=== PATIENT | male | born 1975 | race Caucasian/White ===

== ENCOUNTER 2017-01-19 14:41 | Emergency (ER) | payer OTHER ==
[2017-01-19] MEDS ORDERED: IOPAMIDOL 370 (76%) 100 ML VIAL IV ONE (14:42)
[2017-01-19] MEDS ORDERED: NALBUPHINE HCL 10 MG/ML AMP ONE (15:57)
[2017-01-19] MEDS ORDERED: ONDANSETRON 4 MG/2ML 2 ML VIAL ONE (15:57)
[2017-01-19 16:04] LABS: ABSOLUTE NEUTROPHIL COUNT 5.1 K/mm3 (1.8-7.7); BASO # 0.1 K/mm3 (0.0-0.2); EOS # 0.1 (0.0-0.5); EOS % 1.5 % (0.9-2.9); HEMATOCRIT 49.7 % (32.0-52.0); HEMOGLOBIN 17.4 gm/l (14.0-18.0); IMM NEUT% 0.3 % (0-1); LYMPH # 1.7 (1.0-4.8); LYMPH % 21.3 % (15-45); MEAN CELL VOLUME 89.2 fl (80.0-94.0); MEAN CORPUSCULAR HEMOGLOBIN 31.2 pg (27.0-31.0); MEAN PLATELET VOLUME 9.5 fl (7.4-10.4); MONO # 0.7 (0.0-0.8); MONO % 9.5 % (4-12); NEUT % 66.4 % (43-75); PLATELET COUNT 291 K/mm3 (130-400); RED CELL DISTRIBUTION WIDTH 11.9 % (11.5-14.5)
[2017-01-19 16:22] LABS: ALB/GLOB RATIO 1.4 (>1.0); ALBUMIN 4.2 gm/dL (3.5-5.7)
--- NOTE | 2017-01-19 16:53 | CT ---
Name: BERNARDA OBREGON Exam: CT abdomen pelvis with contrast Comparison: 09/29/2015 History: Abdominal pain. Constipation. Procedure: Helical CT using multidetector technique was applied to the abdomen and pelvis during intravenous administration of 100 cc Isovue-370. No oral contrast was given per ordering physician. An automated dose reduction technique was used to minimize patient radiation dose. Findings: CT abdomen (contrast enhanced): Lung bases are clear. Heart is nonenlarged. There is no pericardial effusion. Liver, gallbladder, pancreas, spleen, adrenal glands, kidneys, aorta, IVC, portal vein, stomach and small bowel are within normal limits. The colon is diffusely dilated with stool and a small amount of air. There is thickening and stranding around the before meals sending colon which measures up to 9 cm in diameter. There are multiple high density subcentimeter foci within the cecum from prior ingestion. Pneumatosis is not appreciated. Reactive lymph nodes are identified. There is no free air or abscess. Multilevel degenerative disease of the spine is present. CT pelvis (contrast enhanced): The bladder is normal. Proximal state is normal size and contains coarse calcifications. Seminal vesicles are symmetric. The proximal sigmoid colon is distended with stool. The mid and distal sigmoid colon are normal caliber. Obvious stricture or obstructing mass is not appreciated on this exam. There is minimal sigmoid colon diverticulosis. Retrocecal appendix is within normal limits. Small bowel is unremarkable. There is no free air, adenopathy or abscess. Trace free fluid is present. Impression: 1. Obstipation. There is diffuse increased stool within the ascending, transverse, descending and proximal sigmoid colon without obvious stricture or structural mass. Findings are consistent with patient's history of constipation. However, there is inflammatory stranding and wall thickening of the ascending colon which measures up to 9 cm in diameter. Colitis or even ischemia of the ascending colon is not excluded on this exam. 2. Trace free fluid. There is no free air or abscess. 3. Normal appendix Note: The above report was uploaded to [facility]'s electronic medical records system at 1648 hours.
== END 2017-01-19 18:17 | disposition home or self-care (01) ==
LOC: ED 14:41
DX: K59.00 Constipation, unspecified (principal); R10.9 Unspecified abdominal pain; J45.909 Unspecified asthma, uncomplicated; F17.210 Nicotine dependence, cigarettes, uncomplicated
CPT/HCPCS: 83690; 85025; 80053; 74177; 96375; 99284 ×2; 96374; J2300; J2405; Q9967

== ENCOUNTER 2017-01-20 09:03 | Inpatient (IN) | payer OTHER ==
[2017-01-20] MEDS ORDERED: LACTATED RINGERS 1,000 ML ONE (09:39)
[2017-01-20] MEDS ORDERED: ONDANSETRON 4 MG/2ML 2 ML VIAL ONE (09:39)
[2017-01-20] MEDS ORDERED: FENTANYL 100 MCG/2 ML VIAL ONE (09:39)
[2017-01-20 10:02] LABS: ABSOLUTE NEUTROPHIL COUNT 6.1 K/mm3 (1.8-7.7); BASO # 0.1 K/mm3 (0.0-0.2); BASO % 0.7 % (0.2-1.0); EOS # 0.1 (0.0-0.5); EOS % 0.6 % (0.9-2.9); HEMATOCRIT 51.7 % (32.0-52.0); HEMOGLOBIN 17.9 gm/l (14.0-18.0); IMM NEUT% 0.4 % (0-1); LYMPH # 1.5 (1.0-4.8); LYMPH % 17.5 % (15-45); MEAN CELL VOLUME 89.6 fl (80.0-94.0); MEAN CORPUSCULAR HGB CONC 34.6 g/dl (33.0-37.0); MEAN PLATELET VOLUME 9.5 fl (7.4-10.4); MONO # 0.9 (0.0-0.8); MONO % 9.9 % (4-12); NEUT % 70.9 % (43-75); PLATELET COUNT 321 K/mm3 (130-400)
[2017-01-20 10:28] LABS: ALB/GLOB RATIO 1.5 (>1.0); ALBUMIN 4.6 gm/dL (3.5-5.7); CALCIUM 9.4 mg/dL (8.6-10.3)
--- NOTE | 2017-01-20 10:33 | RAD ---
Name: BERNARDA OBREGON Exam: Acute abdominal series Comparison: CT dated 01/19/2017 Clinical history: Obstipation Findings: Single view of the chest are submitted. Heart, mediastinum and hilar structures are normal. There is no failure, infiltrate, pleural effusion or pneumothorax. 2 radiographs of the abdomen show air in stomach small bowel and colon. Air-fluid levels are noted throughout the transverse colon. This area is new within the colon when compared to prior CT. Maximum transverse dimension of the transverse colon on the current exam is 10 cm. There are a few small air-fluid levels within the distal small bowel. Distal small bowel however is not dilated. There are many subcentimeter radiopaque foreign bodies in the cecum better seen on prior CT and these are not changed. There is no free intraperitoneal air. Regional skeleton is unremarkable. Impression: 1. Diffuse dilation of the transverse colon which is now air-filled. This area is new from CT dated 01/19/2017 2. No free intraperitoneal air 3. Multiple subcentimeter radiopaque foreign bodies within the cecum unchanged from prior CT. These are of no concern. 4. No acute cardiopulmonary process 5. Please see CT dictation 01/19/2017 for further information
--- NOTE | 2017-01-20 12:10 | PCMCONS ---
General Surgery Consult: CC: abdominal pain and distension HPI: 41yo M with h/o sigmoid diverticulitis with abdominal pain and distension. This started 3-4 days ago. He has not had a BM or passed flatus since. He describes the pain as crampy and intermittent, coming in waves. He came into the ER yesterday where he was dx with constipation. He tried mag citrate and 4 fleets enemas without improvement prompting return visit to the ER. He states he has had 8-10 bouts of emesis over the past 4 days, but currently does not feel nauseated. He has a remote history of diveriticulitis, dx on CT scan in September 2015. This was treated with oral antibiotics. He has never had a colonoscopy. The patient denies any recent F/C/CP/SOB, change in bladder fx, diarrhea, or other associated symptoms. REVIEW OF SYSTEMS CONSTITUTIONAL: As per HPI. EARS, NOSE, MOUTH, THROAT: ~No sneezing or runny nose CARDIOVASCULAR: ~As per HPI. RESPIRATORY: ~As per HPI. GASTROINTESTINAL: ~As per HPI. GENITOURINARY: ~As per HPI. NEUROLOGICAL: ~No history of seizures HEMATOLOGIC: ~As per HPI. MUSCULOSKELETAL: ~No change in strength. LYMPHATICS: ~No history of splenectomy. PSYCHIATRIC: ~No change in personality or affect PMH: Diverticulitis PSH: None Meds: None All: NKDA SH: active PPD smoker, denies alcohol or EtOH FH: No FH of colorectal cancer or IBD Physical Exam: General/Constitutional: Vitals documented above, in mild discomfort due to pain. Psych: A&O x 3, normal judgment and insight. Recent and remote memory intact. Mood and affect normal. Eyes: Pupils equal, no scleral icterus Ears, Nose, Mouth, Throat: gross hearing intact Neck: Supple Heart: RRR, no LE edema Lungs: Equal rise and fall of chest wall, non-labored breathing, no audible wheezes Neuro: Gross sensation intact Abdomen: Soft, distended, tympanic, mild diffuse TTP greatest at umbilicus, no guarding. Rectal: No hemorrhoids, fissures, fistulae. Normal tone, no masses, no TTP, no stool in vault. Small amount of liquid red stool on glove upon withdrawal. Labs: CBC: 8.6/17.9/51/7/321 (71% granulocytes, bands 0.4%) Chem: Na 130, Cl 97, Cr 1.1, o/w normal LFTs: normal CT A/P (01/19/17): Findings: CT abdomen (contrast enhanced): Lung bases are clear. Heart is nonenlarged. There is no pericardial effusion. Liver, gallbladder, pancreas, spleen, adrenal glands, kidneys, aorta, IVC, portal vein, stomach and small bowel are within normal limits. The colon is diffusely dilated with stool and a small amount of air. There is thickening and stranding around the before meals sending colon which measures up to 9 cm in diameter. There are multiple high density subcentimeter foci within the cecum from prior ingestion. Pneumatosis is not appreciated. Reactive lymph nodes are identified. There is no free air or abscess. Multilevel degenerative disease of the spine is present. CT pelvis (contrast enhanced): The bladder is normal. Proximal state is normal size and contains coarse calcifications. Seminal vesicles are symmetric. The proximal sigmoid colon is distended with stool. The mid and distal sigmoid colon are normal caliber. Obvious stricture or obstructing mass is not appreciated on this exam. There is minimal sigmoid colon diverticulosis. Retrocecal appendix is within normal limits. Small bowel is unremarkable. There is no free air, adenopathy or abscess. Trace free fluid is present. Impression: 1. Obstipation. There is diffuse increased stool within the ascending, transverse, descending and proximal sigmoid colon without obvious stricture or structural mass. Findings are consistent with patient's history of constipation. However, there is inflammatory stranding and wall thickening of the ascending colon which measures up to 9 cm in diameter. Colitis or even ischemia of the ascending colon is not excluded on this exam. 2. Trace free fluid. There is no free air or abscess. 3. Normal appendix Acute abdominal series (01/20/17): Findings: Single view of the chest are submitted. Heart, mediastinum and hilar structures are normal. There is no failure, infiltrate, pleural effusion or pneumothorax. 2 radiographs of the abdomen show air in stomach small bowel and colon. Air- fluid levels are noted throughout the transverse colon. This area is new within the colon when compared to prior CT. Maximum transverse dimension of the transverse colon on the current exam is 10 cm. There are a few small air-fluid levels within the distal small bowel. Distal small bowel however is not dilated. There are many subcentimeter radiopaque foreign bodies in the cecum better seen on prior CT and these are not changed. There is no free intraperitoneal air. Regional skeleton is unremarkable. Impression: 1. Diffuse dilation of the transverse colon which is now air-filled. This area is new from CT dated 01/19/2017 2. No free intraperitoneal air 3. Multiple subcentimeter radiopaque foreign bodies within the cecum unchanged from prior CT. These are of no concern. 4. No acute cardiopulmonary process 5. Please see CT dictation 01/19/2017 for further information In the ED, the patient received a soap suds enema with the return of bloody liquid stool with some clots. A/P: 41yo M with h/o diverticulitis with obstipation, abdominal pain, and colonic dilation. Differential includes inflammatory stricture (from prior diveriticulitis), malignancy, IBD, and Ogilvies syndrome. Recommend admission, NPO/IVF, serial exams (at least q12h), and QAM AAS. Given read of dilated small bowel on todays film, will also recommend NGT to LIWS. Would avoid laxitives/ enemas given colonic dilation to 10cm and risk of perforation. Will ultimately need a colonoscopy at some point. Jewel Li MD
[2017-01-20 12:37] VITALS: BMI 28.2
[2017-01-20] MEDS ORDERED: BLISTEX LIPSTICK 1 EACH TP PRN (13:01)
[2017-01-20] MEDS ORDERED: MENTHOL/CETYLPYRD 1 EACH LOZENGE PO PRN (13:01)
[2017-01-20] MEDS ORDERED: SODIUM CHLORIDE 0.9% 100 ML IV PRN (13:01)
[2017-01-20] MEDS ORDERED: PUMP TUBING ONE (13:14)
[2017-01-20] MEDS ORDERED: ALBUTEROL NEB 2.5 MG/3 ML VIAL.NEB NEB PRN (13:15)
[2017-01-20] MEDS ORDERED: SODIUM CHLORIDE 0.9% 500 ML IV SCH (13:15)
[2017-01-20] MEDS ORDERED: HYDROMORPHONE HCL 1 MG/ML SYRINGE IV PRN (13:18)
[2017-01-20] MEDS: SODIUM CHLORIDE 0.9% 1,000 ML IV SCH ×2 (13:18→22:11)
[2017-01-20] MEDS ORDERED: SODIUM PHENOLATE MM PRN (14:01)
[2017-01-20] MEDS ORDERED: PHENOL MM PRN (14:01)
[2017-01-20] MEDS ORDERED: BOT MM PRN (14:01)
[2017-01-20] MEDS: HYDROMORPHONE HCL 0.5 MG/0.5 ML SYRINGE IV PRN ×5 (14:12→23:46)
--- NOTE | 2017-01-20 14:17 | HP ---
BERNARDA OBREGON [id number] DATE OF : 1975 DATE OF ADMISSION: 01/20/2017 IDENTIFICATION: Mr. Obregon is a 41-year-old with no local physician, [facility] is on unassigned backup call for the day of admission. CHIEF COMPLAINT: Abdominal pain. HISTORY OF PRESENT ILLNESS: Mr. Obregon was diagnosed clinically with diverticulitis last week at Urgent Care, and treated with a one week course of oral antibiotics. His diverticulitis symptoms improved, but then he has not had a bowel movement since Saturday four days ago. He tried taking milk of magnesia on , but that caused increasing abdominal cramping and did not help him have a bowel movement. He has not had any bowel movement or past any gas since Saturday. He has had increasing distention and abdominal pain as well as nausea and vomiting. He vomited several times this morning, but is only mildly nauseated currently. He was seen in the emergency department yesterday, and given magnesium citrate and Fleets enemas. Those were not helpful, and only made his pain worse. He returned today and had a soap suds enema which again made his pain worse. X-rays today, compared to a CT scan of the abdomen/pelvis done yesterday showed evolving ileus. He has been seen by Dr. Jewel Li, general surgery and referred to the Hospitalist service for admission. REVIEW OF SYSTEMS: HEENT: He does report a headache. No problems with ears, eyes, nose, or throat. Respiratory: Denies cough, or dyspnea. Cardiac: Denies chest pain, or palpitations. Gastrointestinal: As per history of present illness. Genitourinary: No dysuria, or urgency. Musculoskeletal: No current symptoms. Constitutional: No fevers, but he does have intermittent chills. PAST MEDICAL HISTORY: 1. Diverticulitis diagnosis by CT scan in the emergency department previously. He has required antibiotic treatment on 3 different occasions, including last week. He has had other episodes when he feels like it is coming on and will put himself on a liquid diet for a few days and get better. He has never had a colonoscopy. 2. Asthma. He has not used an inhaler for the last 6 years. PAST SURGICAL HISTORY: Open reduction and internal fixation of a right ankle fracture. ALLERGIES: NONE KNOWN. HOME MEDICATIONS: None. HABITS: He does smoke a half a pack of cigarettes per day. He declines nicotine replacement. He does tend to binge drink, but says that he quit drinking as of 3 weeks ago. He denies illicit drug use. SOCIAL HISTORY: He lives alone on [address], and is a yanez. FAMILY HISTORY: His father had diabetes and coronary artery disease. PHYSICAL EXAMINATION: GENERAL: This is a pleasant 41-year-old in mild discomfort. VITAL SIGNS: Temperature is 98.6 degrees Fahrenheit. Pulse is 86. Blood pressure is 154/94. Respiratory rate is 20. Oxygen saturation is 98% on room air. HEENT: Pupils equal, round, and reactive. Extraocular muscles are intact. He does have mild bilateral conjunctivitis. Oropharynx is moist. CHEST: Clear to auscultation. He does have scattered expiratory wheezes throughout. HEART: Regular, no murmur. ABDOMEN: Distended, soft but tender throughout. No guarding, or rebound. No masses appreciated. Bowel sounds are hypoactive. EXTREMITIES: Good peripheral pulses. No clubbing, cyanosis or edema. NEUROLOGIC: Alert and oriented. No focal deficits. LABORATORY DATA: CBC is entirely normal. Lactate is 0.7. Sodium is 130, potassium 4.5, chloride 97, CO2 of 24, BUN 12, creatinine 1.1, and glucose 99. Liver enzymes are normal. DIAGNOSTIC IMAGING: X-rays of the chest, abdomen, and pelvis show diffuse dilation of the transverse colon which has more air than on the CT scan done yesterday. There is no free air. ASSESSMENT: Mr. Obregon is a 41-year-old with acute ileus. This may be due to underlying diverticular stricture, or other chronic process. He has acute hyponatremia from the associated vomiting, as well as underlying asthma and nicotine dependence. PLAN: 1. Admit to med surge. 2. Nothing by mouth status and nasogastric tube decompression. 3. IV hydration with normal saline. 4. Analgesic and antiemetic medication as necessary. 5. He is not hypoxemic, but we will provide Albuterol nebulizer treatment as necessary. 6. He declined nicotine replacement. 7. Full code status. 8. Repeat labs and x-rays in the morning. 9. Venous thromboembolism risk is low and he does not require prophylaxis. He will be encouraged to ambulate as that may help the ileus as well. FELICITAS/mohsen cc: [facility]
--- NOTE | 2017-01-20 15:01 | RAD ---
Name: BERNARDA OBREGON Exam: Single view chest Comparison: 09/29/2015 Clinical history: Nasogastric tube placement Findings: Single view of the chest is submitted. Heart, mediastinum and hilar structures are within normal limits. There is no failure, infiltrate, pleural effusion or pneumothorax. Nasogastric tube tip is projected just below the GE junction and should be advanced at least 10 cm. Impression: Nasogastric tube with its tip projected just below the GE junction. Tube should be advanced approximately 10 cm. Note: Findings were discussed with Dr. Quinones at 1457 hours
[2017-01-20] MEDS: ONDANSETRON 4 MG/2ML 2 ML VIAL IV PRN (23:44)
[2017-01-21] MEDS: HYDROMORPHONE HCL 0.5 MG/0.5 ML SYRINGE IV PRN ×8 (01:51→19:38)
[2017-01-21] MEDS: ONDANSETRON 4 MG/2ML 2 ML VIAL IV PRN ×3 (01:51→17:25)
[2017-01-21] MEDS: SODIUM CHLORIDE 0.9% 1,000 ML IV SCH ×3 (06:00→22:54)
[2017-01-21 06:02] LABS: CALCIUM 8.8 mg/dL (8.6-10.3)
--- NOTE | 2017-01-21 08:19 | RAD ---
Exam: Acute abdominal series with PA chest COMPARISON: 01/20/2017, CT 01/19/2017 INDICATION: Follow-up obstruction. FINDINGS: Supine and upright views of the abdomen and a PA view of the chest were obtained. NG tube is present in the stomach. There are dilated loops of small bowel which measure up to 4.3 cm in diameter, with air-fluid on the upright view is compatible with a small bowel obstruction. This appears worse when compared with yesterday's exam. High density material remains within the cecum, presumably reflecting pills. There is no free under the diaphragm. Lungs are clear. IMPRESSION: Small bowel obstruction without perforation. No acute pulmonary process. NG tube is in the stomach.
--- NOTE | 2017-01-21 09:48 | PDOC43 ---
- Subjective Chief Complaint: Abdominal pain No change, still painful, no gas or stool passed. - Objective Vital Signs Temperature 96.9 F 01/21/17 07:33 Pulse Rate 85 01/21/17 07:33 Respiratory Rate 22 01/21/17 08:11 Blood Pressure 161/98 01/21/17 07:33 O2 Saturation by Pulse Oximetry 98 01/21/17 07:33 Oxygen Delivery Method Room Air Oxygen Flow Rate 0 Intake and Output 01/20/17 01/21/17 01/22/17 06:59 06:59 06:59 Intake Total 3286 Output Total 1425 150 Balance 1861 -150 Tubes/Drains Output: Tubes and Drains Output NG/OG Output 500 NG/OG Output 400 General: Alert, Oriented x3, Cooperative, Moderate Distress HEENT: Mucous membr. moist/pink Lungs: Clear to Auscultation Bilaterally Cardiovascular: Regular Rate and Rhythm Abdomen: Soft, Tenderness (diffuse), Hypoactive Bowel Sounds, Mild Distention, No Rebounding, No Involuntary Guarding Extremities: Normal Pulses, No Edema Skin: Normal Color Neurological: Normal Speech Psych/Mental Status: Normal Mood Laboratory 01/21/17 05:20 Current Medications: Current meds reviewed in EMR. - Problems: Assessment/Plan (1) Ileus Status: AcuteAssessment/Plan: Continue NG decompression, IV fluids, repeat x-rays in a.m. (2) Hyponatremia Status: AcuteAssessment/Plan: improved with hydration (3) Asthma Qualifiers: Asthma severity: mild intermittent Asthma complication type: uncomplicated Qualifier Code: (J45.20) Mild intermittent asthma, uncomplicated Status: ChronicAssessment/Plan: not needing treatment (4) Diverticulosis Qualifiers: Diverticulosis site: diverticulosis of large intestine Diverticulosis bleeding: diverticulosis without bleeding Qualifier Code: (K57.30) Diverticulosis of large intestine without perforation or abscess without bleeding Status: ChronicAssessment/Plan: may be source of obstruction, will need C-scope (5) Nicotine dependence Qualifiers: Nicotine product type: cigarettes Substance use status: uncomplicated Qualifier Code: (F17.210) Nicotine dependence, cigarettes, uncomplicated Status: ChronicAssessment/Plan: declined nicotine replacement, cessation counseling VTE Prophylaxis: low risk, ambulate
--- NOTE | 2017-01-21 09:49 | PDOC43 ---
- Subjective S: Pain nearly resolved, distension improved. Has belched a few times but denies flatus or BM. No nausea. No other events. O: VSS, NG with 900mL over last 18 hours, 675mL UOP Physical Exam: General/Constitutional: Vitals documented above, comfortable in NAD Psych: A&O x 3, normal judgment and insight. Recent and remote memory intact. Mood and affect normal. Eyes: Pupils equal, no scleral icterus Ears, Nose, Mouth, Throat: gross hearing intact Neck: Supple Heart: RRR, no LE edema Lungs: Equal rise and fall of chest wall, non-labored breathing, no audible wheezes Neuro: Gross sensation intact Abdomen: Soft, mild distension, NT, no guarding. Markedly improved from yesterday. AAS (01/21/17): Supine and upright views of the abdomen and a PA view of the chest were obtained. NG tube is present in the stomach. There are dilated loops of small bowel which measure up to 4.3 cm in diameter, with air-fluid on the upright view is compatible with a small bowel obstruction. This appears worse when compared with yesterday's exam. High density material remains within the cecum, presumably reflecting pills. There is no free under the diaphragm. Lungs are clear. IMPRESSION: Small bowel obstruction without perforation. No acute pulmonary process. NG tube is in the stomach. A/P: 41yo M with improving large bowel obstruction. Exam markedly improved. Plain films have evolved into more of a small bowel obstruction picture which is compatible with an incompetent ileocecal valve and appropriate NG suction. Continue current therapy. OK to start Lovenox for DVT chemo-prophylaxis. Anticipate need for sigmoidoscopy vs. colonoscopy (to determine etiology with possible biopsy) in next 1-2 days if he continues to improve. Jewel Li MD - Objective Vital Signs Temperature 96.9 F 01/21/17 07:33 Pulse Rate 85 01/21/17 07:33 Respiratory Rate 22 01/21/17 08:11 Blood Pressure 161/98 01/21/17 07:33 O2 Saturation by Pulse Oximetry 98 01/21/17 07:33 Oxygen Delivery Method Room Air Oxygen Flow Rate 0 Laboratory 01/21/17 05:20 Active Medication Orders Category Date Time Status Albuterol Sulf Neb 2.5mg/3ml [Ventolin Inhalation Med 01/20/17 13:15 Active Solution (Dose)] 2.5 mg NEB Q2H PRN Hydromorphone HCl [Dilaudid] Med 01/20/17 13:15 Active 0.5 - 1 mg IV Q2H PRN Hydromorphone HCl [Dilaudid] Med 01/20/17 13:18 Active 0.5 - 1 mg IV Q2H PRN Lip [place] [Blistex] Med 01/20/17 13:01 Active 1 each TP PRN PRN Menthol/Cetylpyridinium [Cepacol] Med 01/20/17 13:01 Active 1 each PO PRN PRN Ondansetron 4 mg/2ml Vial [Zofran] Med 01/20/17 13:15 Active 4 - 8 mg IV Q3H PRN Phenol/Sodium Phenolate [Chloraseptic] Med 01/20/17 14:01 Active 2 sprays MM Q1H PRN Sodium Chloride 0.9% 1,000 ml Med 01/20/17 13:15 Active IV 125 mls/hr Sodium Chloride 0.9% 100 ml Med 01/20/17 13:01 Active IV PRN Sodium Chloride 0.9% Flush [Normal Saline 10ml Flush] Med 01/20/17 13:01 Active 10 - 50 ml IV PRN PRN Sodium Chloride 0.9% Flush [Normal Saline 10ml Flush] Med 01/20/17 17:00 Active 10 ml IV Q8HR Intake and Output 01/19/17 01/20/17 01/21/17 22:59 23:59 23:59 Intake Total 1263 Output Total 925 Balance 338 Tubes and Drains Output NG/OG Output 500 NG/OG Output 400
[2017-01-22] MEDS: HYDROMORPHONE HCL 0.5 MG/0.5 ML SYRINGE IV PRN ×8 (04:45→21:35)
[2017-01-22] MEDS: SODIUM CHLORIDE 0.9% 1,000 ML IV SCH ×5 (04:47→23:13)
[2017-01-22 06:37] LABS: CALCIUM 8.6 mg/dL (8.6-10.3)
--- NOTE | 2017-01-22 08:13 | RAD ---
ABDOMEN 2 VIEWS W PA CHEST HISTORY: Follow-up obstruction. COMPARISONS: 01/21/2017. FINDINGS: Supine and upright views of the abdomen and a single view chest were obtained demonstrating an indwelling nasogastric tube, with tip coiled within the left upper quadrant. There are moderately dilated loops of small bowel seen throughout the abdomen with small bowel air-fluid levels consistent with a small bowel obstruction. The appearance is similar to the appearance on prior examination. There are numerous radiopaque densities identified within the right lower quadrant which may reflect ingested capsules within the right colon. No free air is visualized. The lung paris appear to be clear. IMPRESSION: 1. Moderate small bowel distention with air-fluid levels consistent with a small bowel obstruction. The appearance is similar to the appearance on prior examination. No evidence of free intraperitoneal air is observed. 2. An indwelling nasogastric tube with tip coiled within the left upper quadrant.
[2017-01-22] MEDS ORDERED: ENEMA--adult 1 EACH PR ONE (08:39)
--- NOTE | 2017-01-22 08:50 | PDOC43 ---
- Subjective S: No changes since yesterday. Minimal pain but denies passing flatus or having a BM. Ambulating. O: AFVSS, NG with 550mL dark brown/red output over last 24 hours, >1L UOP Physical Exam: General/Constitutional: Vitals documented above, comfortable in NAD Psych: A&O x 3, normal judgment and insight. Recent and remote memory intact. Mood and affect normal. Eyes: Pupils equal, no scleral icterus Ears, Nose, Mouth, Throat: gross hearing intact Neck: Supple Heart: RRR, no LE edema Lungs: Equal rise and fall of chest wall, non-labored breathing, no audible wheezes Neuro: Gross sensation intact Abdomen: Soft, moderate distension, NT, no guarding. AAS (01/22/17): FINDINGS: Supine and upright views of the abdomen and a single view chest were obtained demonstrating an indwelling nasogastric tube, with tip coiled within the left upper quadrant. There are moderately dilated loops of small bowel seen throughout the abdomen with small bowel air-fluid levels consistent with a small bowel obstruction. The appearance is similar to the appearance on prior examination. There are numerous radiopaque densities identified within the right lower quadrant which may reflect ingested capsules within the right colon. No free air is visualized. The lung paris appear to be clear. IMPRESSION: 1. Moderate small bowel distention with air-fluid levels consistent with a small bowel obstruction. The appearance is similar to the appearance on prior examination. No evidence of free intraperitoneal air is observed. 2. An indwelling nasogastric tube with tip coiled within the left upper quadrant. A/P: 41yo M with likely large bowel obstruction of unknown etiology without resolution despite non-operative measures over the last 48 hours, to include correction of hyponatremia. I have asked my partner, Dr. Jacome to further assess with colonoscopy, which he will perform later this afternoon. If a lesion is found (diverticular stricture or other), he will likely need an operative resection. Jewel Li MD - Objective Vital Signs Temperature 97.9 F 01/22/17 07:01 Pulse Rate 72 01/22/17 07:01 Respiratory Rate 18 01/22/17 07:01 Blood Pressure 139/88 01/22/17 07:01 O2 Saturation by Pulse Oximetry 97 01/22/17 07:01 Oxygen Delivery Method Room Air Oxygen Flow Rate 0 Laboratory 01/22/17 05:30 Active Medication Orders Category Date Time Status Albuterol Sulf Neb 2.5mg/3ml [Ventolin Inhalation Med 01/20/17 13:15 Active Solution (Dose)] 2.5 mg NEB Q2H PRN Hydromorphone HCl [Dilaudid] Med 01/20/17 13:15 Active 0.5 - 1 mg IV Q2H PRN Hydromorphone HCl [Dilaudid] Med 01/20/17 13:18 Active 0.5 - 1 mg IV Q2H PRN Lip [place] [Blistex] Med 01/20/17 13:01 Active 1 each TP PRN PRN Menthol/Cetylpyridinium [Cepacol] Med 01/20/17 13:01 Active 1 each PO PRN PRN Ondansetron 4 mg/2ml Vial [Zofran] Med 01/20/17 13:15 Active 4 - 8 mg IV Q3H PRN Phenol/Sodium Phenolate [Chloraseptic] Med 01/20/17 14:01 Active 2 sprays MM Q1H PRN Sodium Chloride 0.9% 1,000 ml Med 01/20/17 13:15 Active IV 125 mls/hr Sodium Chloride 0.9% 100 ml Med 01/20/17 13:01 Active IV PRN Sodium Chloride 0.9% Flush [Normal Saline 10ml Flush] Med 01/20/17 13:01 Active 10 - 50 ml IV PRN PRN Sodium Chloride 0.9% Flush [Normal Saline 10ml Flush] Med 01/20/17 17:00 Active 10 ml IV Q8HR Intake and Output 01/20/17 01/21/17 01/22/17 23:59 23:59 23:59 Intake Total 3421 1326 Output Total 1575 950 Balance 1846 376 Tubes and Drains Output NG/OG Output 550
--- NOTE | 2017-01-22 13:32 | PDOC43 ---
- Subjective Chief Complaint: Abdominal pain pain continues, passed a little stool with fleets enema - Objective Vital Signs Temperature 98.1 F 01/22/17 13:14 Pulse Rate 63 01/22/17 13:14 Respiratory Rate 16 01/22/17 13:14 Blood Pressure 137/89 01/22/17 13:14 O2 Saturation by Pulse Oximetry 98 01/22/17 13:14 Oxygen Delivery Method Room Air Oxygen Flow Rate 0 Intake and Output 01/21/17 01/22/17 01/23/17 06:59 06:59 06:59 Intake Total 3286 3484 Output Total 1425 1750 525 Balance 1861 1734 -525 Tubes/Drains Output: Tubes and Drains Output NG/OG Output 550 General: Alert, Oriented x3, Cooperative, No Acute Distress Lungs: Other (exp wheezes) Cardiovascular: Regular Rate and Rhythm Abdomen: Soft, Tenderness, Hypoactive Bowel Sounds, Distention, No Masses Extremities: Normal Pulses, No Edema Skin: Normal Color Neurological: Normal Speech Psych/Mental Status: Normal Mood Laboratory 01/22/17 05:30 Current Medications: Current meds reviewed in EMR. - Problems: Assessment/Plan (1) Ileus Status: AcuteAssessment/Plan: Continue NG decompression, IV fluids, C-scope today by Dr. Jacome (2) Hyponatremia Status: AcuteAssessment/Plan: resolved with hydration (3) Asthma Qualifiers: Asthma severity: mild intermittent Asthma complication type: uncomplicated Qualifier Code: (J45.20) Mild intermittent asthma, uncomplicated Status: ChronicAssessment/Plan: not needing treatment (4) Diverticulosis Qualifiers: Diverticulosis site: diverticulosis of large intestine Diverticulosis bleeding: diverticulosis without bleeding Qualifier Code: (K57.30) Diverticulosis of large intestine without perforation or abscess without bleeding Status: ChronicAssessment/Plan: may be source of obstruction (5) Nicotine dependence Qualifiers: Nicotine product type: cigarettes Substance use status: uncomplicated Qualifier Code: (F17.210) Nicotine dependence, cigarettes, uncomplicated Status: ChronicAssessment/Plan: declined nicotine replacement, cessation counseling VTE Prophylaxis: low risk, ambulate
[2017-01-22] MEDS ORDERED: PROPOFOL 20 ML IV ONE ×2 (16:17→16:37)
[2017-01-23] MEDS: HYDROMORPHONE HCL 0.5 MG/0.5 ML SYRINGE IV PRN ×5 (00:17→09:28)
[2017-01-23 06:05] LABS: HEMATOCRIT 46.2 % (32.0-52.0); HEMOGLOBIN 15.7 gm/l (14.0-18.0); MEAN CELL VOLUME 91.3 fl (80.0-94.0); RED CELL DISTRIBUTION WIDTH 11.9 % (11.5-14.5)
[2017-01-23 06:22] LABS: ALB/GLOB RATIO 1.3 (>1.0); ALBUMIN 3.7 gm/dL (3.5-5.7); CALCIUM 8.8 mg/dL (8.6-10.3)
[2017-01-23] MEDS: ONDANSETRON 4 MG/2ML 2 ML VIAL IV PRN ×2 (07:46→09:28)
[2017-01-23] MEDS ORDERED: CEFAZOLIN SODIUM 2 GRAM PREMIX 2 G in Premix (D5W) 100 ml 1 EACH IV PRN (09:39)
[2017-01-23] MEDS ORDERED: METRONIDAZOLE 500 MG/NS 100 ML 500 MG in Premix (NS) 100 ml 1 EACH IV PRN (09:39)
[2017-01-23] MEDS: SODIUM CHLORIDE 0.9% 1,000 ML IV SCH ×2 (10:09→22:22)
[2017-01-23] MEDS ORDERED: LACTATED RINGERS 1,000 ML ONE (10:09)
--- NOTE | 2017-01-23 10:33 | PDOC43 ---
- Subjective S: Colonoscopy yesterday by Dr. Jacome found a near vs. completely obstructed sigmoid colon. Minimal pain, still no flatus or BM yet. No other complaints O: AFVSS, approx. 1L UOP, 700mL NG output (brown/dark red) Physical Exam: General/Constitutional: Vitals documented above, comfortable in NAD Psych: A&O x 3, normal judgment and insight. Recent and remote memory intact. Mood and affect normal. Eyes: Pupils equal, no scleral icterus Ears, Nose, Mouth, Throat: gross hearing intact Neck: Supple Heart: RRR, no LE edema Lungs: Equal rise and fall of chest wall, non-labored breathing, no audible wheezes Neuro: Gross sensation intact Abdomen: Soft, distended, nontender, no guarding. A/P: 41yo M with near to completely obstructing lesion in sigmoid colon ( diverticulitis vs. malignancy). I recommend open sigmoidectomy. The operation and expected post-operative course were discussed at length. We discussed the risks of the operation to include, but not limited to: bleeding, pain, infection, scar, damage to surrounding structures (small bowel, colon, bladder, ureter), failure to improve health, need for additional procedures (to include temporary or permanent ileostomy or colostomy), anastomotic leak, need for blood transfusion, postoperative ventral hernia, and the risks of anesthesia (heart attack, arrhythmia, stroke, blood clot, and ). The patient understands these risks and agrees to proceed with surgery. Will cross match for 2 units PRBCs, Ancef/Flagyl for lizet-operative Abx. Jewel Li MD General Surgeon - Objective Vital Signs Temperature 98.2 F 01/23/17 07:38 Pulse Rate 83 01/23/17 07:38 Respiratory Rate 18 01/23/17 07:38 Blood Pressure 159/109 01/23/17 07:38 O2 Saturation by Pulse Oximetry 97 01/23/17 07:38 Oxygen Delivery Method Room Air Oxygen Flow Rate 0 Laboratory 01/23/17 05:30 01/23/17 05:30 01/23/17 05:30 Anion Gap 18 H ALT 6 L Active Medication Orders Category Date Time Status Albuterol Sulf Neb 2.5mg/3ml [Ventolin Inhalation Med 01/20/17 13:15 Active Solution (Dose)] 2.5 mg NEB Q2H PRN Cefazolin Sodium 2 Gram Premix [Ancef 2 Gram Premix] 2 Med 01/23/17 09:39 Ordered g Premix (D5W) 100 ml 1 each IV ON HOLD TO OR Ertapenem Sodium [Invanz] 1 g Med 01/23/17 11:00 Active Ns 0.9% (Mini-Bag Plus) [Mini-Bag Plus (Ns)] 50 ml IV ON HOLD TO OR Hydromorphone HCl [Dilaudid] Med 01/20/17 13:15 Active 0.5 - 1 mg IV Q2H PRN Hydromorphone HCl [Dilaudid] Med 01/20/17 13:18 Active 0.5 - 1 mg IV Q2H PRN Lip [place] [Blistex] Med 01/20/17 13:01 Active 1 each TP PRN PRN Menthol/Cetylpyridinium [Cepacol] Med 01/20/17 13:01 Active 1 each PO PRN PRN Metronidazole 500 mg/Ns 100 ml [Flagyl 500 mg IV] 500 Med 01/23/17 09:39 Ordered mg Premix (NS) 100 ml 1 each IV ON HOLD TO OR Ondansetron 4 mg/2ml Vial [Zofran] Med 01/20/17 13:15 Active 4 - 8 mg IV Q3H PRN Phenol/Sodium Phenolate [Chloraseptic] Med 01/20/17 14:01 Active 2 sprays MM Q1H PRN Sodium Chloride 0.9% 1,000 ml Med 01/20/17 13:15 Active IV 125 mls/hr Sodium Chloride 0.9% 100 ml Med 01/20/17 13:01 Active IV PRN Sodium Chloride 0.9% Flush [Normal Saline 10ml Flush] Med 01/20/17 13:01 Active 10 - 50 ml IV PRN PRN Sodium Chloride 0.9% Flush [Normal Saline 10ml Flush] Med 01/20/17 17:00 Active 10 ml IV Q8HR Intake and Output 01/21/17 01/22/17 01/23/17 23:59 23:59 23:59 Intake Total 3421 3386 2630 Output Total 1575 1655 1175 Balance 1846 1731 1455 Tubes and Drains Output NG/OG Output 200 NG/OG Output 180
[2017-01-23] MEDS ORDERED: ERTAPENEM SODIUM 1 G in NS 0.9% (MINI-BAG PLUS) 50 ML IV PRN (11:00)
[2017-01-23] MEDS ORDERED: FENTANYL 250 MCG/5 ML AMP ONE (11:21)
[2017-01-23] MEDS ORDERED: MIDAZOLAM HCL 5 MG/5 ML VIAL ONE (11:21)
[2017-01-23] MEDS ORDERED: EPIDURAL PROCEDURE TRAY ONE (11:22)
[2017-01-23] MEDS ORDERED: PROPOFOL 20 ML IV ONE ×5 (12:02→17:14)
[2017-01-23] MEDS ORDERED: SUCCINYLCHOLINE CHL 20 MG/ML DOSE ONE (12:02)
[2017-01-23] MEDS ORDERED: ROCURONIUM BROMIDE 10 MG/ML DOSE IV ONE ×2 (12:02→15:18)
[2017-01-23] MEDS ORDERED: DEXAMETHASONE SOD PHOS 4 MG/1 ML VIAL ONE (12:02)
[2017-01-23] MEDS ORDERED: LIDOCAINE 2% (PRES FREE) 5 ML VIAL ONE (12:02)
[2017-01-23] MEDS ORDERED: METOCLOPRAMIDE HCL 5 MG/ML 2ML VIAL ONE (12:02)
[2017-01-23] MEDS ORDERED: ROPIVACAINE 0.5% 30 ML VIAL ONE (13:11)
[2017-01-23] MEDS ORDERED: PHENYLEPHRINE 10 MG/1 ML (1%) VIAL ONE (13:11)
[2017-01-23] MEDS ORDERED: ESMOLOL HCL 10 MG/ML 10ML VIAL IV ONE (13:11)
[2017-01-23 13:15] LABS: ALB/GLOB RATIO 1.3 (>1.0); ALBUMIN 3.5 gm/dL (3.5-5.7); CALCIUM 8.5 mg/dL (8.6-10.3)
[2017-01-23] MEDS ORDERED: HETASTARCH 6% IV ONE (13:17)
[2017-01-23] MEDS ORDERED: NS IV ONE (13:17)
[2017-01-23] MEDS ORDERED: EPHEDRINE SULFATE 50 MG/ML 1ML VIAL IV PRN (14:15)
[2017-01-23] MEDS ORDERED: NALOXONE HCL 0.4 MG/ML VIAL IV PRN ×2 (14:15→14:22)
[2017-01-23] MEDS ORDERED: PROMETHAZINE HCL 25 MG/ML VIAL IM PRN (14:22)
[2017-01-23] MEDS ORDERED: ATROPINE SULFATE 0.4 MG/1 ML VIAL IV PRN (14:22)
[2017-01-23] MEDS ORDERED: HYDROMORPHONE HCL 1 MG/ML SYRINGE IV PRN (14:22)
[2017-01-23] MEDS ORDERED: ONDANSETRON 4 MG/2ML 2 ML VIAL IV PRN (14:22)
[2017-01-23] MEDS ORDERED: FENTANYL 100 MCG/2 ML VIAL IV PRN (14:22)
[2017-01-23] MEDS ORDERED: LACTATED RINGERS 1,000 ML IV SCH (14:30)
[2017-01-23] MEDS ORDERED: KETAMINE HCL UD SYRINGE 100 MG/2 ML IV ONE (14:38)
[2017-01-23] MEDS ORDERED: PROPOFOL 40 ML IV ONE (14:38)
[2017-01-23] MEDS ORDERED: EPIDURAL PUMP SET ONE (14:50)
[2017-01-23] MEDS ORDERED: FENTANYL/ROPIVACAINE EPIDURAL 250 ML EP ONE (14:50)
[2017-01-23] MEDS ORDERED: FENTANYL 100 MCG/2 ML VIAL ONE (16:34)
[2017-01-23] MEDS ORDERED: NEOSTIGMINE METHYLSULFATE 1 MG/ML DOSE ONE (17:29)
[2017-01-23] MEDS ORDERED: GLYCOPYRROLATE 0.2 MG/ML 1ML VIAL ONE (17:29)
[2017-01-23] MEDS ORDERED: MEPERIDINE 25 MG/ML SYRINGE ONE (18:26)
[2017-01-23] MEDS ORDERED: MEPERIDINE 25 MG/ML SYRINGE IV ONE (18:38)
--- NOTE | 2017-01-23 19:04 | PCMON ---
OPERATIVE REPORT Date of Operation: 23 January 2017 Pre-Op Diagnosis: Large bowel obstruction Post-Op Diagnosis: Large bowel obstruction Operation: Open sigmoidectomy with loop ileostomy Surgeon: Jewel Li MD Co-Surgeon: Scott Jacome MD Sow Manager: Mayra Reilly Anesthesia: General Pre-Operative Antibiotics: Ancef/Flagyl Specimen Sent to Lab: Sigmoid colon, anastomotic donuts Infection Classification: 3 Estimated Blood Loss: 200mL IVF: 7L LR, 500mL hetastarch UOP: 360mL NGT: 1L Indication for Procedure: The patient is a 41 year old man with a known history of diverticulitis. He presented 4 days ago with a large bowel obstruction. Sigmoidoscopy showed a near complete vs. complete obstruction in his sigmoid colon. The plan for today is sigmoidectomy. Description of Findings: The sigmoid colon had significant scar tissue consistent with the patients known history of diverticulitis. There was a moderate spillage of stool that was thoroughly irrigated and suctioned. A diverting loop ileostomy was created. Detailed Operative Report: The patient was met in the pre-operative holding area by the operating team. All questions and concerns were addressed appropriately. A thoracic epidural was placed by the anesthesia service. The patient was taken to the operating room general anesthesia was induced. A Daley catheter was placed. A vertical midline incision was made. The peritoneum was opened sharply demonstrating multiple dilated loops of small bowel. The small bowel was evisverated, wrapped in a moist towel, and an omni retractor was placed to facilitate exposure. The sigmoid colon was redundant with significant scar tissue to the rectum and the anterior abdominal wall. Meticulous dissection was performed to dissect this scar tissue and mobilize the colon. The remainder of the sigmoid and descending colon was mobilized in a lateral to medial fashion along the white line of Toldt using blunt dissection and electrocautery. The left ureter was identified and preserved. The patients stenosis was identified and was approximately 5-10cm superior to the recto-sigmoid junction. The distal colon was divided at the recto-sigmoid junction with a GREG linear cutting stapler using a 75mm blue load. The proximal colon was assessed and appeared to be healthy and non-thickened approximately 30cm proximal. This was similarly divided. The mesocolon was divided with the ligasure device. The specimen was passed off to the back table and opened demonstrating a complete obstruction but no clear mass or malignancy. Both remaining ends of bowel reached without any evidence of tension. The decision was made to perform a primary anastomosis with an EEA stapler. We selected a 33mm Ethicon EEA stapler. The proximal staple line was removed sharply from the proximal colon and a purse-string device was fired. During the removal of the staple line, the colon was filled with liquid stool with a moderate amount of spillage. Care was taken to minimize this spillage and suction was passed into the proximal bowel for several minutes to prevent further spillage. The anvil was placed into the proximal colon and the purse string was tied. A series of enlarging sizers were passed, followed by the stapler. The pin exited adjacent to the staple line, the anvil was joined, and the stapler was fired. The proximal colon was occluded and Dr. Jacome performed a sigmoidoscopy with a colonoscope. There was a large air leak and the decision was made to re-do the anastomosis. The anastomosis was sharply divided, the rectum was stapled with a countour stapler, and the proximal colon was debrided back to healthy non-stapled tissue. A hand-sewn purse string suture was placed with a 2-0 prolene. Similar steps were taken and the EEA was fired. There were two small air leaks at the medial and lateral aspects of the anastomosis that were repaired with 3-0 silk lambert sutures. Another leak test was performed that was negative. At this time, the small bowel was inspected and there was a large serosal tear in the proximal ileum that was repaired with 3-0 silk lambert sutures. Given the spillage of stool and a positive but repaired leak test, we elected to perform a diverting loop ileostomy. A loop of ileum 20cm from the cecum was selected as the site for the ileostomy. A circular incision was made removing skin and subcutaneous tissue all the way down to the fascia in a right para- umbilical position. A cruciate fascial incision was made on the anterior rectus fascia and the peritoneum was incised. The ileum was delivered through the defect in a rectus-splitting fashion. This was held into place with a stoma bar. Sepra-film was placed on the peritoneal side of the ileostomy. The abdomen was thoroughly irrigated with several liters of warm saline. Hemostasis was ensured. There was no feculent material noted. The fascia was closed with running looped 0-PDS. The subcutaneous skin was thoroughly irrigated with another liter of warm saline. The skin was loosely closed with skin dandre. Xeroform was placed over the closed incision and an incisional wound vac was placed with a good seal. The stoma was then matured. An enterotomy was created and a large amount of feculent small bowel contents was suctioned. A diverting Analia loope ileostomy was created with interrupted 3-0 Vicryl sutures. A stoma appliance was placed. The patient was then awakened from anesthesia, extubated, and transferred to the PACU without complication. Prior to closing, all sponge and instrument counts were correct. JEWEL LI MD
[2017-01-23] MEDS: FENTANYL/ROPIVACAINE EPIDURAL 250 ML EP SCH (19:26)
[2017-01-23] MEDS ORDERED: EtCO2 Monitoring Set ONE (19:38)
[2017-01-23 19:49] LABS: HEMATOCRIT 47.1 % (32.0-52.0); HEMOGLOBIN 15.8 gm/l (14.0-18.0); MEAN CELL VOLUME 91.3 fl (80.0-94.0); MEAN CORPUSCULAR HEMOGLOBIN 30.6 pg (27.0-31.0); MEAN CORPUSCULAR HGB CONC 33.5 g/dl (33.0-37.0); RED CELL DISTRIBUTION WIDTH 11.7 % (11.5-14.5)
[2017-01-23 19:51] LABS: CALCIUM 7.9 mg/dL (8.6-10.3)
[2017-01-23] MEDS ORDERED: SODIUM CHLORIDE IRRIG 1,000 ML BOT IR PRN (20:16)
[2017-01-23] MEDS ORDERED: PUMP TUBING ONE (20:17)
[2017-01-23] MEDS: LACTATED RINGERS 1,000 ML IV SCH (20:20)
[2017-01-23] MEDS: CEFAZOLIN SODIUM 2 GRAM PREMIX 2 G in Premix (D5W) 100 ml 1 EACH IV SCH (20:40)
[2017-01-23] MEDS: METRONIDAZOLE 500 MG/NS 100 ML 500 MG in Premix (NS) 100 ml 1 EACH IV SCH (21:15)
[2017-01-24] MEDS ORDERED: LACTATED RINGERS 1,000 ML IV SCH ×2 (02:15→06:30)
[2017-01-24] MEDS ORDERED: LACTATED RINGERS 500 ML IV ONE ×3 (02:30→13:15)
[2017-01-24] MEDS: CEFAZOLIN SODIUM 2 GRAM PREMIX 2 G in Premix (D5W) 100 ml 1 EACH IV SCH ×2 (04:42→12:04)
[2017-01-24] MEDS: HYDROMORPHONE HCL 0.5 MG/0.5 ML SYRINGE IV PRN ×7 (04:42→18:10)
[2017-01-24] MEDS: FENTANYL/ROPIVACAINE EPIDURAL 250 ML EP SCH ×3 (05:21→16:55)
[2017-01-24] MEDS: METRONIDAZOLE 500 MG/NS 100 ML 500 MG in Premix (NS) 100 ml 1 EACH IV SCH (05:23)
[2017-01-24 05:54] LABS: HEMATOCRIT 44.2 % (32.0-52.0); HEMOGLOBIN 15.3 gm/l (14.0-18.0); MEAN CELL VOLUME 89.7 fl (80.0-94.0); MEAN CORPUSCULAR HGB CONC 34.6 g/dl (33.0-37.0); RED CELL DISTRIBUTION WIDTH 11.9 % (11.5-14.5)
[2017-01-24 06:19] LABS: CALCIUM 7.7 mg/dL (8.6-10.3); MAGNESIUM 1.5 mg/dL (1.9-2.7)
[2017-01-24] MEDS: LACTATED RINGERS 1,000 ML IV SCH ×2 (06:40→17:40)
[2017-01-24] MEDS ORDERED: SODIUM CHLORIDE 0.9% 100 ML IV ONE (13:29)
[2017-01-24] MEDS ORDERED: PUMP TUBING ONE (13:29)
[2017-01-24] MEDS: ENOXAPARIN SODIUM 40 MG/0.4 ML SYRINGE SUB-Q SCH (13:40)
[2017-01-24] MEDS: ERTAPENEM SODIUM 1 G in NS 0.9% (MINI-BAG PLUS) 50 ML IV SCH (13:41)
[2017-01-24] MEDS ORDERED: MAGNESIUM SULFATE 2 G/50 ML 2 G in Premix (Water) 50 ml 1 EACH IV ONE (14:00)
[2017-01-24] MEDS ORDERED: HYDROMORPHONE HCL 1 MG/ML SYRINGE IV ONE (19:30)
[2017-01-24] MEDS ORDERED: PCA ADMINISTRATION KIT ONE (19:44)
[2017-01-24] MEDS: HYDROMORPHONE PCA (MONOJECT) 12 MG/30 ML INJ.SOLN IV SCH (20:01)
[2017-01-24] MEDS: ONDANSETRON 4 MG/2ML 2 ML VIAL IV PRN (22:23)
[2017-01-25] MEDS: LACTATED RINGERS 1,000 ML IV SCH ×6 (00:31→20:49)
[2017-01-25] MEDS ORDERED: WATER FOR IRRIG,STERILE 1,000 ML BOT ONE (03:00)
[2017-01-25] MEDS: HYDROMORPHONE PCA (MONOJECT) 12 MG/30 ML INJ.SOLN IV SCH ×4 (05:18→18:55)
[2017-01-25 06:12] LABS: HEMATOCRIT 39.3 % (32.0-52.0); HEMOGLOBIN 13.4 gm/l (14.0-18.0); MEAN CELL VOLUME 89.9 fl (80.0-94.0); MEAN CORPUSCULAR HEMOGLOBIN 30.7 pg (27.0-31.0); MEAN CORPUSCULAR HGB CONC 34.1 g/dl (33.0-37.0); RED CELL DISTRIBUTION WIDTH 12.1 % (11.5-14.5)
[2017-01-25 06:44] LABS: CALCIUM 8.1 mg/dL (8.6-10.3)
[2017-01-25] MEDS: ONDANSETRON 4 MG/2ML 2 ML VIAL IV PRN (07:31)
[2017-01-25] MEDS ORDERED: LIDOCAINE 1% (PRES FREE) 5 ML VIAL PF PRN (10:10)
[2017-01-25] MEDS ORDERED: LORAZEPAM 2 MG/ML 1ML SDV IV PRN (10:10)
--- NOTE | 2017-01-25 10:17 | PDOC43 ---
- Subjective Subjective: Reports Pain Tolerable, Denies Flatus, Denies Nausea - Objective Vital Signs Temperature 98.4 F 01/24/17 11:22 Pulse Rate 119 01/24/17 12:06 Respiratory Rate 16 01/24/17 12:06 Blood Pressure 107/67 01/24/17 12:06 O2 Saturation by Pulse Oximetry 94 01/24/17 12:06 Oxygen Delivery Method Room Air Oxygen Flow Rate 0 Laboratory 01/24/17 05:30 01/24/17 05:30 01/24/17 01/23/17 01/23/17 05:30 19:25 12:45 Estimated GFR 56 L Calcium 7.7 L 7.9 L 8.5 L Magnesium 1.5 L Total Protein 6.2 L Crossmatch 01/23/17 10:05 Estimated GFR Calcium Magnesium Total Protein Crossmatch See Detail Active Medication Orders Category Date Time Status Enoxaparin Sodium [Lovenox] Med 01/24/17 12:45 Ordered 40 mg SUB-Q Q24H Ephedrine Sulfate Med 01/23/17 14:15 Active 5 - 10 mg IV Q5M PRN Ertapenem Sodium [Invanz] 1 g Med 01/24/17 12:45 Ordered Ns 0.9% (Mini-Bag Plus) [Mini-Bag Plus (Ns)] 50 ml IV Q24H Fentanyl/Ropivacaine Epidural [Fentanyl 2 Mcg/ml + Med 01/23/17 15:00 Active Ropivacaine 0.125% Ep Bag] 250 ml EP EPI Hydromorphone HCl [Dilaudid] Med 01/23/17 18:56 Active 0.5 mg IV Q1-2H PRN Lactated Ringers 1,000 ml Med 01/24/17 12:46 Ordered IV 150 mls/hr Lactated Ringers 500 ml Med 01/24/17 12:43 Ordered IV 500 mls/hr Magnesium Sulfate 2 G/50 ml [Magnesium Sulfate] 2 g Med 01/24/17 12:39 Ordered Premix (Water) 50 ml 1 each IV X1 Naloxone HCl [Narcan] Med 01/23/17 14:15 Active 0.04 - 0.4 mg IV Q5M PRN Sodium Chloride 0.9% Flush [Normal Saline 10ml Flush] Med 01/23/17 19:07 Active 10 ml IV PRN PRN Sodium Chloride 0.9% Flush [Normal Saline 10ml Flush] Med 01/24/17 01:00 Active 10 ml IV Q8HR Sodium Chloride 1000 Irrig Bot Med 01/23/17 20:16 Active 1,000 ml IR X1 PRN Intake and Output 01/23/17 01/24/17 01/25/17 06:59 06:59 06:59 Intake Total 4026 37180 120 Output Total 1380 3252 953 Balance 2646 7119 -833 Johnnie drainage is serosanguinous. Tubes and Drains Output JOHNNIE #1 40 JOHNNIE #1 55 JOHNNIE #1 15 JOHNNIE #1 20 JOHNNIE #1 30 JOHNNIE #1 70 NG/OG Output 700 NG/OG Output 200 NG/OG Output 950 General: Alert, Oriented x3 Abdomen: Soft, Mild Distention, Other (Ostomy viable. Minimal output.) Extremities: Normal Capillary Refill, No Edema Psych/Mental Status: Normal Affect, No Depressed - Assessment/ Plan (1) Colon obstruction Status: AcuteAssessment/ Plan: Overall doing well. I think he needs to be on broad spectrum antibiotics because of his risk of peritoneal abscess and wound infection. Keep NG in to suction. Maybe epidural out tomorrow. PT/POT. Lovenox for DVT prophylaxis. (2) Nicotine dependence Qualifiers: Nicotine product type: cigarettes Substance use status: uncomplicated Qualifier Code: (F17.210) Nicotine dependence, cigarettes, uncomplicated Status: ChronicAssessment/ Plan: Wants to quit smoking. Denies needing patch. Encourage IS. (3) Hypomagnesemia Status: AcuteAssessment/ Plan: Replace (4) Oligouria Status: AcuteAssessment/ Plan: Bolus with LR. Increase maintenance. Continue IMC monitoring with marginal urination and nursing demands.
--- NOTE | 2017-01-25 10:21 | PDOC43 ---
- Subjective Subjective: Reports Pain Tolerable, Denies Nausea - Objective Vital Signs Temperature 97.7 F 01/25/17 06:57 Pulse Rate 80 01/25/17 06:57 Respiratory Rate 12 01/25/17 07:05 Blood Pressure 134/84 01/25/17 06:57 O2 Saturation by Pulse Oximetry 93 01/25/17 06:57 Oxygen Delivery Method Room Air Oxygen Flow Rate 0 Laboratory 01/25/17 05:30 01/25/17 05:30 01/25/17 05:30 RBC 4.37 L Calcium 8.1 L Active Medication Orders Category Date Time Status Enoxaparin Sodium [Lovenox] Med 01/24/17 13:00 Active 40 mg SUB-Q Q24H Ertapenem Sodium [Invanz] 1 g Med 01/24/17 13:15 Active Ns 0.9% (Mini-Bag Plus) [Mini-Bag Plus (Ns)] 50 ml IV Q24H Hydromorphone HCl [Dilaudid] Med 01/23/17 18:56 Active 0.5 mg IV Q1-2H PRN Hydromorphone [employer] [Dilaudid [employer] Med 01/24/17 19:45 Active See Protocol IV PCA12 Ketorolac Tromethamine [Toradol] Med 01/25/17 10:15 Ordered 30 mg IV Q6H PRN Lactated Ringers 1,000 ml Med 01/25/17 10:16 Ordered IV 100 mls/hr Lidocaine 1% (Pres Free) Med 01/25/17 10:10 Ordered 2 - 5 ml PF X1 PRN Lorazepam [Ativan] Med 01/25/17 10:10 Ordered 0.5 - 1 mg IV X1 PRN Ondansetron 4 mg/2ml Vial [Zofran] Med 01/24/17 22:10 Active 4 mg IV Q6H PRN Sodium Chloride 0.9% Flush [Normal Saline 10ml Flush] Med 01/23/17 19:07 Active 10 ml IV PRN PRN Sodium Chloride 0.9% Flush [Normal Saline 10ml Flush] Med 01/24/17 01:00 Active 10 ml IV Q8HR Sodium Chloride 1000 Irrig Bot Med 01/23/17 20:16 Active 1,000 ml IR X1 PRN Total Parenteral 2,400 ml Med 01/25/17 21:00 Ordered IV DAILY@2100 Intake and Output 01/24/17 01/25/17 01/26/17 06:59 06:59 06:59 Intake Total 70720 4700 Output Total 3252 2552 100 Balance 7188 2148 -100 Tubes and Drains Output JOHNNIE #1 10 JOHNNIE #1 37 JOHNNIE #1 30 JOHNNIE #1 40 NG/OG Output 250 NG/OG Output 450 NG/OG Output 700 General: Alert, Oriented x3 Abdomen: Soft, Mild Distention, Hypoactive Bowel Sounds, Other (Ostomy swollen, viable.) Wound: Erythema (mild, after wound vac removed.), No Drainage - Assessment/ Plan (1) Colon obstruction Status: AcuteAssessment/ Plan: Floor status. Overall doing well. I think he needs to be on broad spectrum antibiotics because of his risk of peritoneal abscess and wound infection. Keep NG in to suction. DC griffith. Lovenox for DVT prophylaxis. (2) Nicotine dependence Qualifiers: Nicotine product type: cigarettes Substance use status: uncomplicated Qualifier Code: (F17.210) Nicotine dependence, cigarettes, uncomplicated Status: ChronicAssessment/ Plan: Wants to quit smoking. Denies needing patch. Encourage IS. (3) Hypomagnesemia Status: AcuteAssessment/ Plan: Normal today (4) Oligouria Status: AcuteAssessment/ Plan: Better after bolus with LR. Decrease maintenance. DC griffith.
--- NOTE | 2017-01-25 14:13 | RAD ---
PORTABLE CHEST RADIOGRAPH HISTORY: PICC line placement Frontal portable chest radiograph dated 01/25/2017. COMPARISON: 01/20/2017. FINDINGS: LUNG VOLUMES: Diminished. FOCAL AIRSPACE OPACITY: No gross airspace consolidation. PLEURAL EFFUSION: None. CARDIOMEDIASTINAL SILHOUETTE: Nonenlarged. PNEUMOTHORAX: None identified. OSSEOUS STRUCTURES: No grossly destructive lesions. LINES AND TUBING: Gastric tubing seen on the diaphragm. Interval placement of right upper extremity approach venous catheter, tip projecting over atriocaval junction, PICC nurse aware. IMPRESSION: Low lung volumes. Interval placement of PICC.
[2017-01-25] MEDS ORDERED: PUMP TUBING ONE ×2 (14:15→20:37)
[2017-01-25] MEDS ORDERED: PCA ADMINISTRATION KIT ONE (14:44)
[2017-01-25] MEDS: ENOXAPARIN SODIUM 40 MG/0.4 ML SYRINGE SUB-Q SCH (15:04)
[2017-01-25] MEDS: ERTAPENEM SODIUM 1 G in NS 0.9% (MINI-BAG PLUS) 50 ML IV SCH (15:04)
[2017-01-25] MEDS: [UNRECOGNIZED DRUG - NUTRITION] IV SCH (20:49)
[2017-01-26] MEDS: HYDROMORPHONE PCA (MONOJECT) 12 MG/30 ML INJ.SOLN IV SCH ×3 (05:09→18:14)
[2017-01-26 05:24] LABS: HEMATOCRIT 36.1 % (32.0-52.0); HEMOGLOBIN 12.3 gm/l (14.0-18.0); MEAN CELL VOLUME 90.9 fl (80.0-94.0); MEAN CORPUSCULAR HGB CONC 34.1 g/dl (33.0-37.0); RED CELL DISTRIBUTION WIDTH 11.9 % (11.5-14.5)
[2017-01-26 05:36] LABS: ALBUMIN 2.6 gm/dL (3.5-5.7); CALCIUM 8.1 mg/dL (8.6-10.3); MAGNESIUM 1.8 mg/dL (1.9-2.7)
[2017-01-26] MEDS ORDERED: SODIUM CHLORIDE 0.9% IV ONE (09:30)
[2017-01-26] MEDS ORDERED: POTASSIUM PHOSPHATE IV ONE (09:30)
[2017-01-26] MEDS ORDERED: MAGNESIUM SULFATE 2 G/50 ML 2 G in Premix (Water) 50 ml 1 EACH IV ONE (09:30)
[2017-01-26] MEDS ORDERED: PUMP TUBING ONE ×2 (09:41→20:48)
[2017-01-26] MEDS: SODIUM CHLORIDE 0.9% 1,000 ML IV SCH (09:47)
--- NOTE | 2017-01-26 10:42 | PDOC43 ---
- Subjective Subjective: Reports Pain Tolerable, Reports Fever, Denies Nausea - Objective Vital Signs Temperature 98.4 F 01/26/17 07:22 Pulse Rate 75 01/26/17 07:22 Respiratory Rate 16 01/26/17 08:01 Blood Pressure 122/82 01/26/17 07:22 O2 Saturation by Pulse Oximetry 99 01/26/17 07:22 Oxygen Delivery Method Room Air Oxygen Flow Rate 0 Laboratory 01/26/17 05:00 01/26/17 05:00 01/26/17 01/26/17 05:00 04:57 RBC 3.97 L Estimated GFR 125 H POC Capillary Glucose 105 H Calcium 8.1 L Phosphorus 1.6 L Magnesium 1.8 L ALT 5 L Alkaline Phosphatase 29 L Total Protein 5.1 L Albumin 2.6 L Triglycerides 172 H Active Medication Orders Category Date Time Status Enoxaparin Sodium [Lovenox] Med 01/24/17 13:00 Active 40 mg SUB-Q Q24H Ertapenem Sodium [Invanz] 1 g Med 01/24/17 13:15 Active Ns 0.9% (Mini-Bag Plus) [Mini-Bag Plus (Ns)] 50 ml IV Q24H Hydromorphone HCl [Dilaudid] Med 01/23/17 18:56 Active 0.5 mg IV Q1-2H PRN Hydromorphone FINANCIAL ANALYSIS CONSULTANT (Monoject) [Dilaudid FINANCIAL ANALYSIS CONSULTANT (Monoject)] Med 01/24/17 19:45 Active See Protocol IV PCA12 Ketorolac Tromethamine [Toradol] Med 01/25/17 10:15 Active 30 mg IV Q6H PRN Lidocaine 1% (Pres Free) Med 01/25/17 10:10 Active 2 - 5 ml PF X1 PRN Lorazepam [Ativan] Med 01/25/17 10:10 Active 0.5 - 1 mg IV X1 PRN Magnesium Sulfate 2 G/50 ml [Magnesium Sulfate] 2 g Med 01/26/17 09:30 Active Premix (Water) 50 ml 1 each IV X1 Ondansetron 4 mg/2ml Vial [Zofran] Med 01/24/17 22:10 Active 4 mg IV Q6H PRN Potassium Phosphate 20 mmol Med 01/26/17 09:30 Active Sodium Chloride 0.9% 293.3333 ml IV X1 Sodium Chloride 0.9% 1,000 ml Med 01/26/17 09:30 Active IV 15 mls/hr Sodium Chloride 0.9% Flush [Normal Saline 10ml Flush] Med 01/23/17 19:07 Active 10 ml IV PRN PRN Sodium Chloride 0.9% Flush [Normal Saline 10ml Flush] Med 01/24/17 01:00 Active 10 ml IV Q8HR Sodium Chloride 1000 Irrig Bot Med 01/23/17 20:16 Active 1,000 ml IR X1 PRN Total Parenteral 2,880 ml Med 01/25/17 21:00 Active IV DAILY@2100 Intake and Output 01/25/17 01/26/17 01/27/17 06:59 06:59 06:59 Intake Total 4700 2836 30 Output Total 2552 1530 235 Balance 2148 1306 -205 Tubes and Drains Output JOHNNIE #1 35 JOHNNIE #1 40 JOHNNIE #1 5 JOHNNIE #1 10 NG/OG Output 325 NG/OG Output 170 NG/OG Output 175 General: Alert, Oriented x3 Abdomen: Soft, Mild Distention, Other (ostomy viable. No significant stool yet.) Wound: Shadow Drainage, Drainage (minimal), Well Approximated, No Erythema Psych/Mental Status: Normal Affect - Assessment/ Plan (1) Colon obstruction Status: AcuteAssessment/ Plan: Floor status. Continue TPN. Replace lytes. I think he needs to be on broad spectrum antibiotics because of his risk of peritoneal abscess and wound infection. Keep NG in to suction. Lovenox for DVT prophylaxis. (2) Nicotine dependence Qualifiers: Nicotine product type: cigarettes Substance use status: uncomplicated Qualifier Code: (F17.210) Nicotine dependence, cigarettes, uncomplicated Status: ChronicAssessment/ Plan: Wants to quit smoking. Denies needing patch. Encourage IS. (3) Hypomagnesemia Status: AcuteAssessment/ Plan: Replace today (4) Hypophosphatemia Status: AcuteAssessment/ Plan: Replace (5) Oligouria Status: AcuteAssessment/ Plan: Measured urine output is marginal but creatinine is better.
[2017-01-26] MEDS: ENOXAPARIN SODIUM 40 MG/0.4 ML SYRINGE SUB-Q SCH (13:50)
[2017-01-26] MEDS: ERTAPENEM SODIUM 1 G in NS 0.9% (MINI-BAG PLUS) 50 ML IV SCH (13:50)
[2017-01-26] MEDS ORDERED: PCA ADMINISTRATION KIT ONE (14:51)
[2017-01-26] MEDS ORDERED: EtCO2 Monitoring Set ONE (18:02)
[2017-01-26] MEDS: [UNRECOGNIZED DRUG - NUTRITION] IV SCH (21:02)
[2017-01-27] MEDS: HYDROMORPHONE PCA (MONOJECT) 12 MG/30 ML INJ.SOLN IV SCH ×3 (05:01→17:17)
[2017-01-27 05:11] LABS: HEMATOCRIT 37.9 % (32.0-52.0); MEAN CELL VOLUME 90.5 fl (80.0-94.0); MEAN CORPUSCULAR HGB CONC 34.3 g/dl (33.0-37.0); RED CELL DISTRIBUTION WIDTH 11.9 % (11.5-14.5)
[2017-01-27 05:33] LABS: ALBUMIN 2.7 gm/dL (3.5-5.7); CALCIUM 8.3 mg/dL (8.6-10.3); MAGNESIUM 1.9 mg/dL (1.9-2.7)
--- NOTE | 2017-01-27 07:58 | PDOC43 ---
- Subjective Subjective: Reports Pain Tolerable, Denies Flatus, Denies Nausea, Denies Distention - Objective Vital Signs Temperature 98.9 F 01/27/17 02:37 Pulse Rate 79 01/27/17 02:37 Respiratory Rate 15 01/27/17 02:58 Blood Pressure 134/99 01/27/17 02:37 O2 Saturation by Pulse Oximetry 99 01/27/17 02:58 Oxygen Delivery Method Room Air Oxygen Flow Rate 0 Laboratory 01/27/17 04:50 01/27/17 04:50 01/27/17 01/26/17 04:50 23:35 RBC 4.19 L Estimated GFR 125 H POC Capillary Glucose 108 H Calcium 8.3 L Phosphorus 1.7 L AST 12 L ALT 5 L Alkaline Phosphatase 31 L Total Protein 5.5 L Albumin 2.7 L Triglycerides 166 H Active Medication Orders Category Date Time Status Enoxaparin Sodium [Lovenox] Med 01/24/17 13:00 Active 40 mg SUB-Q Q24H Ertapenem Sodium [Invanz] 1 g Med 01/24/17 13:15 Active Ns 0.9% (Mini-Bag Plus) [Mini-Bag Plus (Ns)] 50 ml IV Q24H Hydromorphone HCl [Dilaudid] Med 01/23/17 18:56 Active 0.5 mg IV Q1-2H PRN Hydromorphone BOOT TURNER (Monoject) [Dilaudid BOOT TURNER (Monoject)] Med 01/24/17 19:45 Active See Protocol IV PCA12 Ketorolac Tromethamine [Toradol] Med 01/25/17 10:15 Active 30 mg IV Q6H PRN Lidocaine 1% (Pres Free) Med 01/25/17 10:10 Active 2 - 5 ml PF X1 PRN Lorazepam [Ativan] Med 01/25/17 10:10 Active 0.5 - 1 mg IV X1 PRN Ondansetron 4 mg/2ml Vial [Zofran] Med 01/24/17 22:10 Active 4 mg IV Q6H PRN Sodium Chloride 0.9% 1,000 ml Med 01/26/17 09:30 Active IV 15 mls/hr Sodium Chloride 0.9% Flush [Normal Saline 10ml Flush] Med 01/23/17 19:07 Active 10 ml IV PRN PRN Sodium Chloride 0.9% Flush [Normal Saline 10ml Flush] Med 01/24/17 01:00 Active 10 ml IV Q8HR Sodium Chloride 1000 Irrig Bot Med 01/23/17 20:16 Active 1,000 ml IR X1 PRN Total Parenteral 2,880 ml Med 01/25/17 21:00 Active IV DAILY@2100 Intake and Output 01/26/17 01/27/17 01/28/17 06:59 06:59 06:59 Intake Total 2836 4158 30 Output Total 1530 3780 245 Balance 1306 378 -215 Tubes and Drains Output JOHNNIE #1 20 JOHNNIE #1 40 JOHNNIE #1 25 JOHNNIE #1 25 JOHNNIE #1 25 NG/OG Output 300 NG/OG Output 200 General: Alert, Oriented x3 Abdomen: Soft, Non-Distended, Other (ostomy viable. Serous fluid only.) Extremities: No Edema Wound: Well Approximated, No Erythema - Assessment/ Plan (1) Colon obstruction Status: AcuteAssessment/ Plan: Floor status. Continue TPN. Replace lytes. I think he needs to be on broad spectrum antibiotics because of his risk of peritoneal abscess and wound infection. Clamp NG today. Lovenox for DVT prophylaxis. (2) Nicotine dependence Qualifiers: Nicotine product type: cigarettes Substance use status: uncomplicated Qualifier Code: (F17.210) Nicotine dependence, cigarettes, uncomplicated Status: ChronicAssessment/ Plan: Wants to quit smoking. Denies needing patch. Encourage IS. (3) Hypomagnesemia Status: AcuteAssessment/ Plan: Normal today (4) Hypophosphatemia Status: AcuteAssessment/ Plan: Replace today. Increase in TPN. (5) Oligouria Status: AcuteAssessment/ Plan: Good urine output.
[2017-01-27] MEDS: SODIUM CHLORIDE 0.9% 1,000 ML IV SCH (08:59)
[2017-01-27] MEDS ORDERED: SODIUM CHLORIDE 0.9% IV ONE (09:00)
[2017-01-27] MEDS ORDERED: POTASSIUM PHOSPHATE IV ONE (09:00)
[2017-01-27] MEDS: ENOXAPARIN SODIUM 40 MG/0.4 ML SYRINGE SUB-Q SCH (13:05)
[2017-01-27] MEDS: ERTAPENEM SODIUM 1 G in NS 0.9% (MINI-BAG PLUS) 50 ML IV SCH (15:31)
[2017-01-27] MEDS ORDERED: PUMP TUBING ONE (20:24)
[2017-01-27] MEDS: [UNRECOGNIZED DRUG - NUTRITION] IV SCH (20:35)
[2017-01-28] MEDS: HYDROMORPHONE PCA (MONOJECT) 12 MG/30 ML INJ.SOLN IV SCH ×3 (05:52→18:34)
[2017-01-28 06:15] LABS: HEMATOCRIT 39.7 % (32.0-52.0); HEMOGLOBIN 13.5 gm/l (14.0-18.0); MEAN CELL VOLUME 90.2 fl (80.0-94.0); MEAN CORPUSCULAR HEMOGLOBIN 30.7 pg (27.0-31.0)
[2017-01-28] MEDS: KETOROLAC TROMETHAMINE 30 MG/ML 1 ML VIAL IV PRN ×2 (06:19→19:20)
[2017-01-28 06:25] LABS: ALBUMIN 2.8 gm/dL (3.5-5.7); CALCIUM 8.4 mg/dL (8.6-10.3); MAGNESIUM 1.9 mg/dL (1.9-2.7)
[2017-01-28] MEDS ORDERED: [UNRECOGNIZED DRUG - NUTRITION] IV SCH (06:41)
--- NOTE | 2017-01-28 06:44 | PDOC43 ---
- Subjective Subjective: Reports Pain Tolerable, Reports Bowel Movement, Denies Nausea (No nausea with NG clamped) - Objective Vital Signs Temperature 98.0 F 01/28/17 04:20 Pulse Rate 88 01/28/17 04:20 Respiratory Rate 18 01/28/17 04:20 Blood Pressure 145/101 01/28/17 04:20 O2 Saturation by Pulse Oximetry 100 01/28/17 04:20 Oxygen Delivery Method Room Air Oxygen Flow Rate 0 Laboratory 01/28/17 05:20 01/28/17 05:20 01/28/17 01/28/17 01/27/17 05:44 05:20 18:03 RBC 4.40 L Estimated GFR 149 H POC Capillary Glucose 103 H 104 H Calcium 8.4 L Total Protein 5.6 L Albumin 2.8 L Crossmatch 01/27/17 01/23/17 12:04 10:05 RBC Estimated GFR POC Capillary Glucose 102 H Calcium Total Protein Albumin Crossmatch See Detail Active Medication Orders Category Date Time Status Enoxaparin Sodium [Lovenox] Med 01/24/17 13:00 Active 40 mg SUB-Q Q24H Ertapenem Sodium [Invanz] 1 g Med 01/24/17 13:15 Active Ns 0.9% (Mini-Bag Plus) [Mini-Bag Plus (Ns)] 50 ml IV Q24H Hydromorphone HCl [Dilaudid] Med 01/23/17 18:56 Active 0.5 mg IV Q1-2H PRN Hydromorphone DEGREE CLERK (Monoject) [Dilaudid DEGREE CLERK (Monoject)] Med 01/24/17 19:45 Active See Protocol IV PCA12 Ketorolac Tromethamine [Toradol] Med 01/25/17 10:15 Active 30 mg IV Q6H PRN Lidocaine 1% (Pres Free) Med 01/25/17 10:10 Active 2 - 5 ml PF X1 PRN Lorazepam [Ativan] Med 01/25/17 10:10 Active 0.5 - 1 mg IV X1 PRN Ondansetron 4 mg/2ml Vial [Zofran] Med 01/24/17 22:10 Active 4 mg IV Q6H PRN Sodium Chloride 0.9% 1,000 ml Med 01/26/17 09:30 Active IV 15 mls/hr Sodium Chloride 0.9% Flush [Normal Saline 10ml Flush] Med 01/23/17 19:07 Active 10 ml IV PRN PRN Sodium Chloride 0.9% Flush [Normal Saline 10ml Flush] Med 01/24/17 01:00 Active 10 ml IV Q8HR Sodium Chloride 1000 Irrig Bot Med 01/23/17 20:16 Active 1,000 ml IR X1 PRN Total Parenteral 2,880 ml Med 01/28/17 06:41 Ordered IV DAILY@2100 Intake and Output 01/26/17 01/27/17 01/28/17 06:59 06:59 06:59 Intake Total 2836 4158 3779 Output Total 1530 3780 4725 Balance 1306 378 -946 Tubes and Drains Output JOHNNIE #1 20 JOHNNIE #1 40 JOHNNIE #1 20 General: Alert, Oriented x3 Abdomen: Soft, Non-Distended, Other (JOHNNIE serous) Wound: Dressing Clean/Dry/Intact, Well Approximated - Assessment/ Plan (1) Colon obstruction Status: AcuteAssessment/ Plan: Floor status. Continue TPN. I think he needs to be on broad spectrum antibiotics because of his risk of peritoneal abscess and wound infection. Remove NG today. Start full liquids. Lovenox for DVT prophylaxis. (2) Nicotine dependence Qualifiers: Nicotine product type: cigarettes Substance use status: uncomplicated Qualifier Code: (F17.210) Nicotine dependence, cigarettes, uncomplicated Status: ChronicAssessment/ Plan: No desire to smoke (3) Hypomagnesemia Status: AcuteAssessment/ Plan: Pending today (4) Hypophosphatemia Status: AcuteAssessment/ Plan: Pending today. (5) Oligouria Status: AcuteAssessment/ Plan: Good urine output.
[2017-01-28] MEDS: SODIUM CHLORIDE 0.9% 1,000 ML IV SCH (10:30)
--- NOTE | 2017-01-28 10:52 | SURGPATH ---
[facility] [address] [place] [id number] Patient Name: BERNARDA OBREGON MR#: [id number] : 1975 Gender: M Specimen #: [id number] Collected: 01/23/2017 Received: 01/25/2017 Reported: 01/28/2017 Submitting Phys: PITO BRANNON Copy To Phys: BERNARDA HANDLEY Lacie [facility] Clinical History / Pre-Operative Diagnosis: ACUTE PARALYTIC ILEUS Specimen Source / Surgical Procedure Performed: #1-SIGMOID COLON (STITCH-PROXIMAL); #2-ANASTOMOSIS DONUT Interpretation: 1. COLON, SIGMOID, PARTIAL COLECTOMY (21 CM RESECTED LENGTH): - MILD ACUTE DIVERTICULITIS. - DIVERTICULOSIS. - NO EVIDENCE OF MALIGNANCY. 2. COLON, ANASTOMOTIC DONUT, EXCISION: - COLONIC MUCOSA SHOWING NO DIAGNOSTIC ABNORMALITIES. - NO EVIDENCE OF SIGNIFICANT INFLAMMATION OR MALIGNANCY. Electronically Signed Out Otilio Downing M.D., Ph.D. Gross Description: #1 The specimen is received in a formalin filled container labeled with the patient's name and "sigmoid colon". A segment of large bowel is 21 cm in length and has an external diameter which averages 3 cm. The glistening pink serosa has focal surface adhesions and the attached pericolic fat averages 3 cm. A stitch marshall the proximal end. The bowel is open longitudinally to reveal a patent lumen. The bowel wall is fibrotic and focally thickened to 1 cm. The mucosa is beck and unremarkable. Cross sectioning reveals multiple well-formed diverticula. There is no identifiable perforation site or associated pericolic abscess cavity. Random sectioning of the attached pericolic fat reveals a single 0.3 cm pale bryant tentatively identified lymph node. Summary of sections: [id number] sampled diverticula 1F-randomly sampled pericolic lymph node #2 The specimen is received in a formalin filled container labeled with the patient's name and "anastomotic donut". Two unremarkable ringlets of bowel tissue are 1.7 x 1.6 x 0.7 cm and 2.3 x 2.0 x 1.5 cm. There is embedded blue suture material and surgical dandre. A section of each is submitted in cassette #2. Sujit Mcduffie PPriscillaA. Microscopic Description: 1. Examination of multiple sections from the sigmoid colon partial colectomy specimen shows colonic mucosa with scattered diverticula. There is a moderate acute inflammatory cell infiltrate associated with one of the diverticula. There is no evidence of malignancy. 2. Examination of sections from the colon anastomotic donut shows two fragments of histologically unremarkable colonic mucosa. The architecture is intact without evidence of distortion. There is no evidence of significant inflammation or malignancy. 1: 04175 2: 35569 K57.32
[2017-01-28] MEDS: ENOXAPARIN SODIUM 40 MG/0.4 ML SYRINGE SUB-Q SCH (12:45)
[2017-01-28] MEDS: ERTAPENEM SODIUM 1 G in NS 0.9% (MINI-BAG PLUS) 50 ML IV SCH (15:02)
[2017-01-28] MEDS ORDERED: ALBUTEROL NEB 2.5 MG/3 ML VIAL.NEB NEB PRN (17:05)
[2017-01-28] MEDS ORDERED: PUMP TUBING ONE (21:17)
[2017-01-28] MEDS ORDERED: [UNRECOGNIZED DRUG - NUTRITION] IV SCH (21:45)
[2017-01-28] MEDS: [UNRECOGNIZED DRUG - NUTRITION] IV SCH (23:54)
[2017-01-29] MEDS: HYDROMORPHONE PCA (MONOJECT) 12 MG/30 ML INJ.SOLN IV SCH ×2 (06:26→09:18)
[2017-01-29 06:37] LABS: ALBUMIN 2.6 gm/dL (3.5-5.7); CALCIUM 8.2 mg/dL (8.6-10.3)
[2017-01-29] MEDS: KETOROLAC TROMETHAMINE 30 MG/ML 1 ML VIAL IV PRN (08:18)
[2017-01-29] MEDS ORDERED: PUMP TUBING ONE ×2 (09:19→15:13)
[2017-01-29] MEDS: SODIUM CHLORIDE 0.9% 1,000 ML IV SCH (09:21)
[2017-01-29] MEDS: ENOXAPARIN SODIUM 40 MG/0.4 ML SYRINGE SUB-Q SCH (12:49)
[2017-01-29] MEDS ORDERED: HYDROMORPHONE HCL 0.5 MG/0.5 ML SYRINGE IV PRN (13:13)
[2017-01-29] MEDS ORDERED: OXYCODONE HCL 5 MG TABLET ONE (13:31)
[2017-01-29] MEDS ORDERED: HYDROMORPHONE HCL 1 MG/ML SYRINGE IV PRN (13:32)
[2017-01-29] MEDS: OXYCODONE HCL 5 MG TABLET PO PRN ×3 (13:36→22:01)
[2017-01-29] MEDS ORDERED: SODIUM CHLORIDE 0.9% 100 ML IV ONE (15:13)
[2017-01-29] MEDS: ERTAPENEM SODIUM 1 G in NS 0.9% (MINI-BAG PLUS) 50 ML IV SCH (15:18)
--- NOTE | 2017-01-29 15:54 | PDOC43 ---
- Subjective Subjective: Reports Pain Tolerable, Denies Nausea, Denies Distention - Objective Vital Signs Temperature 97.8 F 01/29/17 15:00 Pulse Rate 80 01/29/17 15:00 Respiratory Rate 20 01/29/17 15:00 Blood Pressure 127/70 01/29/17 15:00 O2 Saturation by Pulse Oximetry 100 01/29/17 15:00 Oxygen Delivery Method Room Air Oxygen Flow Rate 0 Laboratory 01/28/17 05:20 01/29/17 05:10 01/29/17 05:10 Estimated GFR 125 H Calcium 8.2 L Total Protein 5.1 L Albumin 2.6 L Active Medication Orders Category Date Time Status Albuterol Sulf Neb 2.5mg/3ml [Ventolin Inhalation Med 01/28/17 17:05 Active Solution (Dose)] 2.5 mg NEB Q4H PRN Enoxaparin Sodium [Lovenox] Med 01/24/17 13:00 Active 40 mg SUB-Q Q24H Ertapenem Sodium [Invanz] 1 g Med 01/24/17 13:15 Active Ns 0.9% (Mini-Bag Plus) [Mini-Bag Plus (Ns)] 50 ml IV Q24H Hydromorphone HCl [Dilaudid] Med 01/29/17 13:13 Active 0.5 - 1 mg IV Q2H PRN Hydromorphone HCl [Dilaudid] Med 01/29/17 13:32 Active 0.5 - 1 mg IV Q2H PRN Ketorolac Tromethamine [Toradol] Med 01/25/17 10:15 Active 30 mg IV Q6H PRN Ondansetron 4 mg/2ml Vial [Zofran] Med 01/24/17 22:10 Active 4 mg IV Q6H PRN Oxycodone HCl [Roxicodone] Med 01/29/17 13:13 Active 5 - 10 mg PO Q4H PRN Sodium Chloride 0.9% Flush [Normal Saline 10ml Flush] Med 01/23/17 19:07 Active 10 ml IV PRN PRN Sodium Chloride 0.9% Flush [Normal Saline 10ml Flush] Med 01/24/17 01:00 Active 10 ml IV Q8HR Intake and Output 01/28/17 01/29/17 01/30/17 06:59 06:59 06:59 Intake Total 3779 6651 Output Total 4761 2495 Balance -946 4156 Tubes and Drains Output JOHNNIE #1 60 JOHNNIE #1 110 General: Alert, Oriented x3 Abdomen: Soft, Non-Distended Wound: Well Approximated, No Drainage, No Erythema Psych/Mental Status: Normal Affect - Assessment/ Plan (1) Colon obstruction Status: AcuteAssessment/ Plan: Floor status. Stop TPN. I think he needs to be on broad spectrum antibiotics because of his risk of peritoneal abscess and wound infection. Advance diet. Lovenox for DVT prophylaxis. (2) Nicotine dependence Qualifiers: Nicotine product type: cigarettes Substance use status: uncomplicated Qualifier Code: (F17.210) Nicotine dependence, cigarettes, uncomplicated Status: ChronicAssessment/ Plan: No desire to smoke (3) Hypomagnesemia Status: AcuteAssessment/ Plan: Normal today (4) Hypophosphatemia Status: AcuteAssessment/ Plan: Normal today. (5) Oligouria Status: AcuteAssessment/ Plan: Good urine output.
[2017-01-30] MEDS: OXYCODONE HCL 5 MG TABLET PO PRN ×2 (03:53→08:30)
[2017-01-30 07:07] VITALS: BP 127/81
--- NOTE | 2017-01-31 08:14 | DS ---
[facility] [id number] DATE OF ADMISSION: 01/20/2017 DATE OF DISCHARGE: 01/30/2017 HISTORY: This is a 41-year-old male who was diagnosed with diverticulitis the week prior to admission at Urgent Care and was started on oral antibiotics. Initially he improved, but had not had a bowel movement. He was having increasing cramping and abdominal pain. He presented to the emergency room and was given magnesium citrate and Fleets enema's which were not helpful. X-rays showed possible evolving ileus, but with persistent symptoms general surgery was consulted. The patient was admitted to the hospitalist service with surgical consultation. PAST MEDICAL HISTORY: Diverticulitis, asthma. PAST SURGICAL HISTORY: Open reduction internal fixation of a right ankle fracture. PHYSICAL EXAMINATION: ABDOMEN: On initial exam his abdomen was distended, soft, no guarding or rebound. DIAGNOSTICS: X-rays on admission showed diffuse dilation of the transverse colon without free air. HOSPITAL COURSE: He was admitted to the floor and kept nothing by mouth with a nasogastric tube in place. Intravenous hydration was given. Serial abdominal x-rays were obtained. He continued to have some abdominal distention. Nasogastric tube suction did not improve his symptoms significantly. He was taken for lower endoscopy on 01/22/2017 at which time he was found to have some diverticulosis with obstruction of the sigmoid colon. No neoplastic tissue was seen. It was decided that this was not going to resolve with time and nasogastric tube suction. He was taken to the operating room on 01/23/[address] Li. He was found to have scarring with obstruction into the sigmoid colon. There was a large amount of stool within the obstructed colon. He underwent a sigmoid colectomy with a primary anastomosis. There was difficulties with the primary anastomosis and eventually Loop ileostomy was performed. He was hemodynamically stable during that procedure and was taken to the intensive care unit postoperatively because of the length of the procedure and the amount of fluids in and out with his asthma. Following surgery it was expected that he would have an ileus because of the amount of bowel dilation seen at the time of surgery. A PICC line was placed and he was started on parenteral nutrition. He ended up needing a nasogastric tube for three days postoperatively. Once this was removed he tolerated that. He was started on liquids and slowly advanced to a more regular diet. His abdominal wound had a wound VAC placed after surgery on top of his loosely closed incision with dandre. During the hospitalization he did not show signs of infection. Because of the amount of intraoperative stool spillage he was kept on prophylactic antibiotics. He was without fever and he had normal white count. JOHNNIE drain was placed at the time of surgery to prevent abscess. At the time of discharge it had serous fluid only and was removed. At time of discharge, he was ambulating without difficulty. He was eating a regular diet. He was able to take care of his ileostomy site. Additional follow up with STEPS was set up to manage the ileostomy. His PICC line was kept in place in the event that he would need it postoperatively. FINAL DIAGNOSIS: Sigmoid colon obstruction due to acute diverticulitis. ADDITIONAL DIAGNOSES: Include asthma. PROCEDURES PERFORMED: Sigmoidoscopy, sigmoid colon resection with diverting Loop ileostomy. INSTRUCTIONS ON DISCHARGE: He is to follow up in the office with Dr. Mendoza in one week for staple removal. If he is doing well he can have his PICC line removed as well. He has a bar in his Loop ileostomy and that can be removed in one week. DISCHARGE MEDICATIONS: 1. He was given a prescription for oxycodone to use if needed. 2. He was given prescription for Cipro and Flagyl for an additional five days. JOB: [id number]
== END 2017-01-30 11:42 | disposition home or self-care (01) | DRG 330 ==
LOC: ED 09:03 → MS 11:23 → ICU 01-23 20:00 → MS 01-25 18:30 → ICU 01-25 18:30 → MS 01-27 12:51
PROVIDERS: ADMIT Family Medicine; ATTEND Surgery
PROC: 0D9670Z Drainage of Stomach with Drainage Device, Via Natural or Artificial Opening (ICD-10-PCS; principal; 2017-01-20)
PROC: 0DJD8ZZ Inspection of Lower Intestinal Tract, Via Natural or Artificial Opening Endoscopic (ICD-10-PCS; 2017-01-22)
PROC: 0DBN0ZZ Excision of Sigmoid Colon, Open Approach (ICD-10-PCS; 2017-01-23)
PROC: 0D1B0Z4 Bypass Ileum to Cutaneous, Open Approach (ICD-10-PCS; 2017-01-23)
PROC: 02HV33Z Insertion of Infusion Device into Superior Vena Cava, Percutaneous Approach (ICD-10-PCS; 2017-01-23)
PROC: 30233N1 Transfusion of Nonautologous Red Blood Cells into Peripheral Vein, Percutaneous Approach (ICD-10-PCS; 2017-01-23)
DX: K56.0 Paralytic ileus (principal); K57.92 Diverticulitis of intestine, part unspecified, without perforation or abscess without bleeding; E87.1 Hypo-osmolality and hyponatremia; J45.909 Unspecified asthma, uncomplicated; K57.30 Diverticulosis of large intestine without perforation or abscess without bleeding; F17.210 Nicotine dependence, cigarettes, uncomplicated; R34 Anuria and oliguria; E83.42 Hypomagnesemia; E83.39 Other disorders of phosphorus metabolism